=== PATIENT | female | born 1995 | race African-American/Black ===

== ENCOUNTER 2020-12-31 12:25 | Emergency (ER) | payer OTHER ==
[~2020-12-31] VITALS: Ht 154.9 cm; Wt 95.3 kg
[2020-12-31 14:01] LABS: URINE BILIRUBIN NEGATIVE (Negative); URINE BLOOD NEGATIVE (Negative); URINE CLARITY SL CLOUDY; URINE COLOR YELLOW; URINE GLUCOSE-RANDOM* NEGATIVE (Negative); URINE KETONES TRACE (Negative); URINE LEUKOCYTES-REFLEX NEGATIVE (Negative); URINE NITRITE-REFLEX NEGATIVE (Negative); URINE PROTEIN (DIPSTICK) 2+ (Negative); URINE SPECIFIC GRAVITY 1.025 (1.005-1.035)
[2020-12-31 14:10] LABS: CALCIUM 8.4 mg/dL (8.5-10.1); CREATININE 1.1 mg/dL (0.6-1.0); POTASSIUM 3.2 mmol/L (3.5-5.1)
[2020-12-31 14:12] LABS: BACTERIA-REFLEX 1-9 Few /HPF (None Seen); CASTS None Seen /LPF (None Seen); CRYSTALS None Seen /LPF (None Seen); SQUAMOUS >10 Many /LPF (0-3); URINE RBC None Seen /HPF (NONE SEEN); URINE WBC-REFLEX 6-15 Few /HPF (0-5)
[2020-12-31 14:15] LABS: HEMATOCRIT 39.2 % (37.0-47.0); HEMOGLOBIN 12.8 gm/dL (12.0-15.0); MCH 24.5 pg (26.0-34.0); MCHC 32.7 g/dL (28.0-37.0); MCV 74.8 fL (80.0-100.0); RBC 5.24 mil/uL (4.20-5.00); RDW 14.6 % (10.5-14.5); WBC 4.5 thou/uL (4.0-11.0)
[2020-12-31 14:16] LABS: ALBUMIN 3.7 g/dL (3.4-5.0); TOTAL BILIRUBIN 0.4 mg/dL (0.2-1.0)
[2020-12-31] MEDS ORDERED: ZOFRAN ODT4 MG PO (15:00)
[2020-12-31 15:49] VITALS: BP 109/64
--- NOTE | 2020-12-31 16:22 | EKG ---
[address] [place] [address] ELECTROCARDIOGRAM REPORT Name: RUDI LANGLEY Room #: DEP TATY Saeed#: [id number] Admission: 12/31/20 Attend Phys: Discharge: 12/31/20 Date of : [birth year] Report #: [id number] [facility] ED Test Date: 2020-12-31 Test Time: 12:55:25 Pat Name: RUDI LANGLEY Department: Room: Gender: F Office Agent: : 1995 Requested By: Liu Patel Order Number: [id number] MD: Deangelo Flores Measurements Intervals [place] Rate: 108 P: 57 MD: 120 QRS: 74 QRSD: 79 T: 6 QT: 340 QTc: 456 Interpretive Statements Sinus tachycardia Probable left atrial enlargement No previous ECG available for comparison Electronically Signed On 12-31-2020 16:22:06 CDT by Deangelo Flores [email or web address] <ELECTRONICALLY SIGNED> By: Deangelo Flores MD, [facility] 12/31/20 1622 [id number] Deangelo Flores MD, FACC /EPI
--- NOTE | 2020-12-31 20:03 | NUR ---
ATTEMPTED TO CALL PT RE POSITIVE COIVD RESULT, NO ANSWER LEFT MESSAGE TO RETURN CALL.
[2021-01-01] MEDS ORDERED: NIFEDIPINE ER60 M1 PO (13:29)
[2021-01-01] MEDS ORDERED: ALPRAZOLAM 0.50.5 M1 PO (13:29)
[2021-01-01] MEDS ORDERED: SERTRALINE HCL100 MG PO (13:29)
[2021-01-01] MEDS ORDERED: LIPITOR 40 MG T40 M1 PO (13:30)
[2021-01-01] MEDS ORDERED: PROAIR HFA8.5 GM INH (14:02)
== END 2020-12-31 15:49 | disposition home or self-care (01) ==
LOC: ER 12:25
PROVIDERS: Emergency Medicine
DX: U07.1 COVID-19 (principal); R11.2 Nausea with vomiting, unspecified; Z88.0 Allergy status to penicillin

== ENCOUNTER 2021-01-01 13:13 | Emergency (ER) | payer OTHER ==
[~2021-01-01] VITALS: Ht 154.9 cm; Wt 95.3 kg
[~2021-01-01 13:13] MED LIST: ZOFRAN ODT4 MG PO
[2021-01-01 13:23] VITALS: BP 142/79
[2021-01-01] MEDS ORDERED: SERTRALINE HCL100 MG PO (13:29)
[2021-01-01] MEDS ORDERED: ALPRAZOLAM 0.50.5 M1 PO (13:29)
[2021-01-01] MEDS ORDERED: NIFEDIPINE ER60 M1 PO (13:29)
[2021-01-01] MEDS ORDERED: LIPITOR 40 MG T40 M1 PO (13:30)
[2021-01-01] MEDS ORDERED: PROAIR HFA8.5 GM INH (14:02)
== END 2021-01-01 14:10 | disposition home or self-care (01) ==
LOC: ER 13:13
DX: U07.1 COVID-19 (principal); I10 Essential (primary) hypertension; Z88.0 Allergy status to penicillin; Z79.899 Other long term (current) drug therapy